=== PATIENT | female | born 1970 | race American Indian/Alaskan Native ===

== ENCOUNTER 2017-06-22 10:42 | Emergency (ER) | payer SELFPAY ==
[2017-06-22 12:27] LABS: Urine Drugs of Abuse Note Disclamer
[2017-06-22 12:37] LABS: Bilirubin,Urine NEG (Negative); Blood,Urine SM (Negative); Ketones,Urine NEG (Negative); Leukocyte Esterase,Urine NEG (Negative); Mucus,Urine FEW /HPF; Nitrite,Urine NEG (Negative); Protein,Urine <15 mg/dL mg/dL (Negative); Urobilinogen,Urine < 2.0 mg/dL (<2.0)
[2017-06-22 12:49] LABS: Basophils % (Auto) 0.7 % (0.0-1.8); Hematocrit 44.4 % (30.3-42.9); Hemoglobin 14.6 gm/dl (10.1-14.3); Mean Corpuscular HGB Conc 33 % (30-34); Mean Corpuscular Hemoglobin 30 pg (28-32); Mean Corpuscular Volume 91 fl (79-97); Platelet Count 234 K/mm3 (140-440); Red Blood Count 4.88 M/mm3 (3.65-5.03); Red Cell Distribution Width 15.4 % (13.2-15.2); White Blood Count 5.3 K/mm3 (4.5-11.0)
[2017-06-22 13:08] LABS: Anion Gap 18 mmol/L; BUN/Creatinine Ratio 21.42; Blood Urea Nitrogen 15 mg/dL (7-17); Calcium 9.1 mg/dL (8.4-10.2); Carbon Dioxide 22 mmol/L (22-30); Chloride 102.6 mmol/L (98-107); Glucose 104 mg/dL (65-100); Potassium 4.3 mmol/L (3.6-5.0); Sodium 138 mmol/L (137-145)
[2017-06-22 15:16] VITALS: BP 147/99
[2017-06-22] MEDS ORDERED: TYLENOL ONE (16:25)
[2017-06-22] MEDS ORDERED: TYLENOL PO ONE (16:27)
== END 2017-06-22 18:15 | disposition left against medical advice (07) ==
LOC: ED 10:42
DX: M54.2 Cervicalgia (principal); R10.30 Lower abdominal pain, unspecified; N89.8 Other specified noninflammatory disorders of vagina; Z87.891 Personal history of nicotine dependence; Z53.21 Procedure and treatment not carried out due to patient leaving prior to being seen by health care provider
CPT/HCPCS: 36415; 80048; 80307; 81001; 85025; G0480; 80320

== ENCOUNTER 2017-06-28 07:17 | Emergency (ER) | payer SELFPAY ==
[2017-06-28 08:01] LABS: Hematocrit 45.2 % (30.3-42.9); Hemoglobin 14.6 gm/dl (10.1-14.3); Mean Corpuscular HGB Conc 32 % (30-34); Mean Corpuscular Hemoglobin 29 pg (28-32); Mean Corpuscular Volume 91 fl (79-97); Platelet Count 229 K/mm3 (140-440); Red Blood Count 4.99 M/mm3 (3.65-5.03); Red Cell Distribution Width 15.3 % (13.2-15.2); White Blood Count 4.4 K/mm3 (4.5-11.0)
[2017-06-28 08:25] LABS: Alanine Aminotransferase 10 units/L (7-56); Albumin 3.9 g/dL (3.9-5); Albumin/Globulin Ratio 1.5 %; Alkaline Phosphatase 76 units/L (35-129); Anion Gap 19 mmol/L; BUN/Creatinine Ratio 18.33; Blood Urea Nitrogen 11 mg/dL (7-17); Calcium 8.4 mg/dL (8.4-10.2); Carbon Dioxide 21 mmol/L (22-30); Chloride 104.2 mmol/L (98-107); Glucose 80 mg/dL (65-100); Lipase 38 units/L (13-60); Potassium 4.2 mmol/L (3.6-5.0); Sodium 140 mmol/L (137-145); Total Protein 6.5 g/dL (6.3-8.2)
[2017-06-28] MEDS ORDERED: MORPHINE IV ONE (08:30)
[2017-06-28] MEDS ORDERED: NACL 0.9% 1000 ML 1,000 ML IV ONE (08:30)
--- NOTE | 2017-06-28 08:36 | Emergency Department Report ---
ED Abdominal Pain HPI - General Chief Complaint: Abdominal Pain Stated Complaint: ABD/NECK/SHOULDER PAIN Time Seen by Provider: 06/28/17 08:09 Source: patient Mode of arrival: Ambulatory Limitations: Language Barrier - History of Present Illness Initial Comments: Patient is 46-year-old female here with complaint of neck and abdominal pain. 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 States that she's had some nausea and vomiting since that time. Her pain is been there for approximately one week. She describes it as an ache in the left lower quadrant. She is a history of neck surgery. She currently takes gabapentin and amitriptyline and oxycodone for her pain. No fevers chills, no neurological symptoms. MD Complaint: abdominal pain -: Gradual, week(s) (1) Location: LLQ Radiation: none Migration to: no migration Severity: mild Severity scale (0 -10): 0 Quality: aching Consistency: constant Improves With: nothing Worsens With: movement Associated Symptoms: nausea, vomiting. denies: diarrhea, chills, constipation - Related Data Previous Rx's Medication Instructions Recorded Last Taken Type Cyclobenzaprine [Flexeril 10 MG 10 mg PO BID PRN #30 tablet 06/28/17 Unknown Rx TAB] Ibuprofen [Motrin 600 MG tab] 600 mg PO Q8H PRN #30 tablet 06/28/17 Unknown Rx Allergies Allergy/AdvReac Type Severity Reaction Status Date / Time No Known Allergies Allergy Unverified 06/22/17 11:08 ED Review of Systems ROS: Stated complaint: ABD/NECK/SHOULDER PAIN Other details as noted in HPI Comment: All other systems reviewed and negative Constitutional: denies: chills, fever Eyes: denies: eye pain, eye discharge, vision change ENT: denies: ear pain, throat pain Respiratory: denies: cough, shortness of breath, wheezing Cardiovascular: denies: chest pain, palpitations Endocrine: no symptoms reported Gastrointestinal: abdominal pain. denies: nausea, diarrhea Genitourinary: denies: urgency, dysuria, discharge Musculoskeletal: denies: back pain, joint swelling, arthralgia Skin: denies: rash, lesions Neurological: denies: headache, weakness, paresthesias Psychiatric: denies: anxiety, depression Hematological/Lymphatic: denies: easy bleeding, easy bruising ED Past Medical Hx - Past Medical History Previous Medical History?: Yes Hx Arthritis: Yes Additional medical history: DJD - Surgical History Additional Surgical History: "NANDINI IN NECK " NOV 2016. TUBAL LIGATION. PARTIAL HYSTERECTOMY - Family History Family history: no significant - Social History Smoking Status: Former Smoker - Medications Home Medications: Home Medications Medication Instructions Recorded Confirmed Last Taken Type Cyclobenzaprine [Flexeril 10 MG 10 mg PO BID PRN #30 tablet 06/28/17 Unknown Rx TAB] Ibuprofen [Motrin 600 MG tab] 600 mg PO Q8H PRN #30 tablet 06/28/17 Unknown Rx ED Physical Exam - General Limitations: Language Barrier General appearance: alert, in no apparent distress - Head Head exam: Present: atraumatic, normocephalic - Eye Eye exam: Present: normal appearance - ENT ENT exam: Present: mucous membranes moist - Neck Neck exam: Present: normal inspection - Respiratory Respiratory exam: Present: normal lung sounds bilaterally. Absent: respiratory distress - Cardiovascular Cardiovascular Exam: Present: regular rate, normal rhythm. Absent: systolic murmur, diastolic murmur, rubs, gallop - GI/Abdominal GI/Abdominal exam: Present: soft, normal bowel sounds. Absent: distended, tenderness, guarding, rebound, hernia - Extremities Exam Extremities exam: Present: normal inspection - Back Exam Back exam: Present: normal inspection - Neurological Exam Neurological exam: Present: alert, oriented X3 - Psychiatric Psychiatric exam: Present: normal affect, normal mood - Skin Skin exam: Present: warm, dry, intact, normal color. Absent: rash ED Course Vital Signs 06/28/17 06/28/17 06/28/17 07:24 08:50 10:09 Temperature 97.9 F Pulse Rate 74 Respiratory 16 20 20 Rate Blood Pressure 124/85 Blood Pressure 124/85 [Left] O2 Sat by Pulse 100 100 Oximetry ED Medical Decision Making - Lab Data Result diagrams: 06/28/17 07:41 06/28/17 07:41 Laboratory Results - last 24 hr 06/28/17 06/28/17 07:41 07:41 WBC 4.4 L RBC 4.99 Hgb 14.6 H Hct 45.2 H MCV 91 MCH 29 MCHC 32 RDW 15.3 H Plt Count 229 Lymph % (Auto) [employer] Seg Neutrophils % [employer] Sodium 140 Potassium 4.2 Chloride 104.2 Carbon Dioxide 21 L Anion Gap 19 BUN 11 Creatinine 0.6 L Estimated GFR > 60 BUN/Creatinine Ratio 18.33 Glucose 80 Calcium 8.4 Total Bilirubin 0.20 AST 13 ALT 10 Alkaline Phosphatase 76 Total Protein 6.5 Albumin 3.9 Albumin/Globulin Ratio 1.5 Lipase 38 - Medical Decision Making 46-year-old female here with abdominal pain and neck and back pain. Patient lifted a heavy weightlifting recently and is now having pain. My suspicion is low for significant pathology. Labs are unremarkable. Exam does not reveal hernia. She has no neurological symptoms. Treat with IV fluids and morphine and anticipated discharge. Portions of this chart were dictated with dictation software. There may be dictation errors contained within this note. Critical care attestation.: If time is entered above; I have spent that time in minutes in the direct care of this critically ill patient, excluding procedure time. ED Disposition Clinical Impression: Abdominal pain, Neck pain Disposition: [id number] PSY HOSP/PSY UNIT Is pt being admited?: No Condition: Stable Instructions: Abdominal Pain (ED) Additional Instructions: No heavy lifting for the next week. Prescriptions: Cyclobenzaprine [Flexeril 10 MG TAB] 10 mg PO BID PRN #30 tablet PRN Reason: Muscle Spasm Ibuprofen [Motrin 600 MG tab] 600 mg PO Q8H PRN #30 tablet PRN Reason: Pain Forms: Work/School Release Form(ED)
[2017-06-28 08:39] LABS: Bilirubin,Urine NEG (Negative); Blood,Urine MOD (Negative); Ketones,Urine NEG (Negative); Leukocyte Esterase,Urine SM (Negative); Mucus,Urine FEW /HPF; Nitrite,Urine NEG (Negative); Protein,Urine <15 mg/dL mg/dL (Negative); Urobilinogen,Urine < 2.0 mg/dL (<2.0)
[2017-06-28 10:19] LABS: Basophils % (Manual) 0 % (0.0-1.8); Blastocytes % (Manual) 0 %
[2017-06-28 10:22] LABS: Anisocytosis 1+; Diff Status Complete; Platelet Estimate Consistent w Auto
[2017-06-28 10:57] VITALS: BP 132/86
== END 2017-06-28 10:58 | disposition home or self-care (01) ==
LOC: ED 07:17
DX: M54.2 Cervicalgia (principal); R10.32 Left lower quadrant pain; R11.2 Nausea with vomiting, unspecified; M19.90 Unspecified osteoarthritis, unspecified site; Z87.891 Personal history of nicotine dependence
CPT/HCPCS: 36415; 80053; 81001; 83690; 85007; 85025; 96361; 96374; 99283; J2270; J7030